=== PATIENT | female | born 2000 | race Caucasian/White ===

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

== ENCOUNTER 2022-12-16 20:03 | Emergency (ER) | payer OTHER ==
[~2022-12-16] VITALS: Ht 177.8 cm; Wt 63.0 kg
[2022-12-16 20:07] VITALS: BP 142/71; PULSE 114; RESP 18; TEMP 98.2
[2022-12-16] MEDS ORDERED: IBUPROFEN 800 MG TABLET PO ONE (21:00)
== END 2022-12-16 22:28 | disposition home or self-care (01) ==
LOC: EMS 20:05
DX: S90.122A Contusion of left lesser toe(s) without damage to nail, initial encounter (principal); W19.XXXA Unspecified fall, initial encounter; Y93.89 Activity, other specified; Y92.89 Other specified places as the place of occurrence of the external cause; Y99.8 Other external cause status
CPT/HCPCS: 99283

== ENCOUNTER 2023-10-10 14:22 | Emergency (ER) | payer OTHER ==
[~2023-10-10] VITALS: Ht 25.4 cm; Wt 65.9 kg
[2023-10-10 14:24] VITALS: TEMP 98
[2023-10-10] MEDS: PROPARACAINE HCL 0.5% 15 ML OPHTHALMIC SOLUTION OU ONE (16:41)
[2023-10-10] MEDS: FLUORESCEIN SODIUM 1 MG STRIP OU ONE (16:45)
[2023-10-10] MEDS ORDERED: ERYT3.5O8 OS (17:35)
[2023-10-10 18:06] VITALS: BP 121/74; PULSE 78; RESP 16
== END 2023-10-10 18:10 | disposition home or self-care (01) ==
LOC: EMS 14:26
DX: S05.02XA Injury of conjunctiva and corneal abrasion without foreign body, left eye, initial encounter (principal); X58.XXXA Exposure to other specified factors, initial encounter; Y93.89 Activity, other specified; Y92.89 Other specified places as the place of occurrence of the external cause; Y99.8 Other external cause status
CPT/HCPCS: 99283